=== PATIENT | female | born 1990 | race Caucasian/White ===

== ENCOUNTER → 2021-10-18 | Outpatient (CLI) | payer OTHER | END | disposition home or self-care (01) | LOC: RAD 09:23 → MRI 09:55 → RAD 13:59 | PROVIDERS: ATTEND Orthopaedic Surgery Sports Medicine | DX: M25.512 Pain in left shoulder (principal); G89.29 Other chronic pain ==

== ENCOUNTER 2021-10-29 21:50 | Emergency (ER) | payer OTHER ==
[~2021-10-29] VITALS: Ht 172.7 cm; Wt 95.3 kg
--- NOTE | ~2021-10-29 | EMS ---
[address] [address] EMS Patient Care Report Name: MARIA E COLEMAN [id number] Admission: 10/29/21 Attend Phys: Discharge: 10/29/21 Date of : [birth year] Report #: [id number] THIS REPORT FOR: //name// Report Transmitted: 10/30/2021 13:26 EMS Care Summary [place], [place]/[facility] Incident [id number] @ 10/29/2021 21:01 Incident Location [id number] [place] [address] Patient MARIA E COLEMAN Female, 31 Years 1990 Patient Address [id number] [place] [address] Patient History Stroke/CVA, Patient Allergies No known allergies, Patient Medications Gabapentin, Chief Complaint l ankle pain Disposition Transported No Lights/[place] Reason Falls Transported To [facility] Narrative pt fell outside on deck and was helped inside by service captain. presents on couch with isolated ankle complaint. tx and assessments as noted. pt secured to stair chair for taking to cot. self transferred to cot with leg supported by medic. transported secured to cot with seatbelts x 2 rails up x [address] [address] EMS Patient Care Report Name: MARIA E COLEMAN Room #: DEP Jerad#: [id number] Admission: 10/29/21 Attend Phys: Discharge: 10/29/21 Date of : [birth year] Report #: [id number] change. pt self transferred to hospital bed with support given to injured leg. care transferred to staff Initial Vitals @21:34P: 91,R: 18,BP: 127/80,Pain: 8/10,GCS: 15,CO: 2,SpO2: 99,Revised Trauma: 12, @21:34P: 93,R: 18,BP: 125/82,Pain: 8/10,GCS: 15,SpO2: 99,Revised Trauma: 12, @21:18P: 80,R: 18,Pain: 8/10,GCS: 15,Revised Trauma: 12, Assessments @21:15MENTAL:Event Oriented,Time Oriented,Person Oriented,Place Oriented,SKIN:HEENT:Head/Face: No Abnormalities,Neck/Airway: No Abnormalities,LUNG SOUNDS:ABDOMEN:PELVIS//GI:EXTREMITIES:Left Leg: Other,Left Arm: No Abnormalities,Right Arm: No Abnormalities,Right Leg: No Abnormalities,PULSE:Radial: 2+ Normal,NEURO:No Abnormalities,@21:21MENTAL:SKIN:HEENT:LUNG SOUNDS:ABDOMEN:PELVIS//GI:EXTREMITIES:Left Leg: Other,PULSE:Pedal: 2+ Normal,Radial: 2+ Normal,NEURO: Impression Injury of Ankle Procedures @21:15 ALS Assessment Response: UnchangedSucceeded @21:20 Splint Fx/Disloc. Response: ImprovedSucceeded @21:23 Stairchair Response: Unchanged @21:25 Stretcher Response: Unchanged Timeline 20:59,Call Received 20:59,Dispatch Notified 21:01,Dispatched 21:02,En Route 21:13,On Scene 21:15,At Patient 21:15,ALS Assessment,Response: UnchangedSucceeded, 21:18,BP: 110/ M,PULSE: 80,RR: 18 R,SPO2: Ox,ETCO2: ,BG: ,PAIN: 8,GCS: 15, 21:20,Splint Fx/Disloc.,Response: ImprovedSucceeded, 21:23,Stairchair,Response: Unchanged 21:25,Stretcher,Response: Unchanged 21:34,BP: 125/82 M,PULSE: 93,RR: 18 R,SPO2: 99 Ox,ETCO2: ,BG: ,PAIN: 8,GCS: 15, 21:34,BP: 127/80 M,PULSE: 91,RR: 18 R,SPO2: 99 Ox,ETCO2: ,BG: ,PAIN: 8,GCS: 15, 21:36,Depart Scene 21:47,At Destination 22:03,Call Closed [facility] [address] [place] [address] EMS Patient Care Report Name: MARIA E COLEMAN Room #: NASH Mars#: [id number] Admission: 10/29/21 Attend Phys: Discharge: 10/29/21 Date of : [birth year] Report #: [id number] Disclaimer [email or web address] Copyright 2021 [employer] This EMS Care Summary contains data elements from the applicable legal record (which may be displayed differently). It is designed to provide pertinent information for the following purposes: continuity of care, clinical quality, and state data reporting. The complete legal record is available to ED staff and administrators of the receiving hospital in [employer]'s Patient Tracker. All data is provided "as is."
[2021-10-29] MEDS ORDERED: GABAPENTIN 100100 MG PO (22:15)
[2021-10-29] MEDS ORDERED: ZYRTEC10 M5 PO (22:16)
[2021-10-29] MEDS ORDERED: PHENTERMINE HCL15 MG PO (22:16)
[2021-10-29] MEDS ORDERED: CALCIUM500 MG (22:17)
[2021-10-29] MEDS ORDERED: MULTI VITAMIN1 EACH PO (22:17)
[2021-10-29 22:55] VITALS: BP 128/77
[2021-10-29] MEDS ORDERED: PERCOCET 5-3251 EACH PO (22:58)
== END 2021-10-29 23:45 | disposition home or self-care (01) ==
LOC: ER 21:50
DX: S93.402A Sprain of unspecified ligament of left ankle, initial encounter (principal); W01.0XXA Fall on same level from slipping, tripping and stumbling without subsequent striking against object, initial encounter; Y93.89 Activity, other specified; Y92.89 Other specified places as the place of occurrence of the external cause; Y99.8 Other external cause status